=== PATIENT | female | born 2000 | race Caucasian/White ===

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

== ENCOUNTER 2018-09-07 01:47 | Emergency (ER) | payer SELFPAY ==
[2018-09-07 01:50] VITALS: BP 114/67; PULSE 93; RESP 18; TEMP 36.7; O2SAT 99; BMI 37.5
[2018-09-07 02:50] VITALS: BP 97/58; PULSE 81; RESP 14; O2SAT 92
--- NOTE | 2018-09-07 05:18 | ED.DCSUM_ITS ---
- ER Visit Summary Date of Service: 09/07/18 Chief Complaint: I drank too much History of Present Illness: The patient is a 17 F who presents with acute alcohol intoxication. She states that she drank too much tonight. She did have some nausea and vomiting prior to arrival. Currently she complains of nausea but has no other complaints. Physical Examination: Afebrile vitals normal Moist mucous membranes Heart regular rate and rhythm Lungs are clear Abdomen soft Drowsy but easily arousable Test Results: Not indicated Emergency Department Course and Treatment: I offered Zofran for nausea here which the patient declined she did not want to take any medications. She has been observed. On reevaluation she feels better. She has been able to ambulate on her own to and from the bathroom. We will discharge to the wellness center at [facility]. Treatment Plan: [] Disposition: Discharge Impression: Acute alcohol intoxication This note was generated with [employer] dictation software. It may contain incorrect words, spelling, and punctuation that were not noted in review of the chart prior to signin ED Disposition - Plan for ED Patient: Instructions: ED Alcohol Intoxication Referrals: Care Physician,No Primary [Primary Care Provider] -
[2018-09-07 05:41] VITALS: BP 127/61; PULSE 63; RESP 16; O2SAT 98
== END 2018-09-07 05:56 | disposition home or self-care (01) ==
PROVIDERS: Emergency Provider Emergency Medicine
DX: F10.129 Alcohol abuse with intoxication, unspecified (principal); Y90.9 Presence of alcohol in blood, level not specified
CPT/HCPCS: 99283